=== PATIENT | female | born 1940 | race Caucasian/White ===

== ENCOUNTER → 2018-01-23 14:36 | Outpatient (CLI) | payer MEDICARE, SELFPAY ==
--- NOTE | 2018-01-23 | DI.MG.S_ITS ---
BILATERAL DIGITAL SCREENING MAMMOGRAM 3D/2D WITH CAD: 01/23/2018 CLINICAL: Routine screening. Family history of breast cancer. Comparison is made to exams dated: 12/31/2016 mammogram, 12/31/2015 mammogram, and 12/26/2014 mammogram - [facility]. There are scattered fibroglandular elements in both breasts. Current study was also evaluated with a Computer Aided Detection (CAD) system. No significant masses, calcifications, or other findings are seen in either breast. There has been no significant interval change. IMPRESSION: NEGATIVE There is no mammographic evidence of malignancy. A 1 year screening mammogram is recommended. This exam was interpreted at Station ID: [id number]. NOTE: For mammograms, a report in lay terms will be sent to the patient. Approximately 15% of breast malignancies will not be visualized mammographically. In the management of a palpable breast mass, a negative mammogram must not discourage biopsy of a clinically suspicious lesion. Electronically Signed By: Krzysztof keller/sultana:01/23/2018 15:56:37 copy to: Remberto Ken letter sent: Normal Exam ACR BI-RADS Category 1: Negative 3341F
== END ==
PROVIDERS: PCP Internal Medicine; Visit Provider Internal Medicine
DX: Z12.31 Encounter for screening mammogram for malignant neoplasm of breast (principal); Z80.3 Family history of malignant neoplasm of breast
CPT/HCPCS: 77063; 77067

== ENCOUNTER → 2018-04-18 13:00 | Outpatient (CLI) | payer MEDICARE, SELFPAY | PROVIDERS: PCP Internal Medicine | DX: Z23 Encounter for immunization (principal) | CPT/HCPCS: 90471; 90662 ==

== ENCOUNTER → 2019-02-07 11:23 | Outpatient (CLI) | payer MEDICARE, SELFPAY ==
--- NOTE | 2019-02-07 | DI.MG.S_ITS ---
BILATERAL DIGITAL SCREENING MAMMOGRAM 3D/2D WITH CAD: 02/07/2019 CLINICAL: Routine screening. Family history of breast cancer. Comparison is made to exams dated: 01/23/2018 mammogram, 12/31/2016 mammogram, and 12/31/2015 mammogram - [facility]. There are scattered fibroglandular elements in both breasts. Current study was also evaluated with a Computer Aided Detection (CAD) system. No significant masses, calcifications, or other findings are seen in either breast. There has been no significant interval change. IMPRESSION: NEGATIVE There is no mammographic evidence of malignancy. A 1 year screening mammogram is recommended. This exam was interpreted at Station ID: [id number]. NOTE: For mammograms, a report in lay terms will be sent to the patient. Approximately 15% of breast malignancies will not be visualized mammographically. In the management of a palpable breast mass, a negative mammogram must not discourage biopsy of a clinically suspicious lesion. Electronically Signed By: Christal miranda/sultana:02/07/2019 12:52:35 copy to: Remberto Ken letter sent: Normal Exam ACR BI-RADS Category 1: Negative 3341F
== END ==
PROVIDERS: PCP Internal Medicine; Visit Provider Internal Medicine
DX: Z12.31 Encounter for screening mammogram for malignant neoplasm of breast (principal); Z80.3 Family history of malignant neoplasm of breast
CPT/HCPCS: 77063; 77067

== ENCOUNTER → 2019-04-24 15:04 | Outpatient (CLI) | payer MEDICARE, SELFPAY | PROVIDERS: PCP Internal Medicine | DX: Z23 Encounter for immunization (principal) | CPT/HCPCS: 90471; 90662 ==

== ENCOUNTER → 2019-07-19 14:18 | Outpatient (ROUT) | payer MEDICARE, SELFPAY ==
[2019-07-19 14:42] LABS: Aspartate Aminotransferase 28 IU/L (14-36); BUN Creatinine Ratio 19.2 (6-22); Blood Urea Nitrogen 23 mg/dL (7-17); Calcium 10.4 mg/dL (8.4-10.2); Carbon Dioxide 26 mmol/L (22-32); Chloride 104 mmol/L (98-107); Cholesterol 199 mg/dL (140-199); Estimated Glomerular Filt Rate 43.4 mL/min (>60); Glucose 94 mg/dL (80-110); HDL Cholesterol 76 mg/dL (40-60); HEMOLYSIS < 15 (0-50); LDL Cholesterol Calculated 107 mg/dL (<100); Potassium 4.7 mmol/L (3.4-5.1); Sodium 137 mmol/L (137-145); Triglycerides 78 mg/dL (35-150)
== END ==
PROVIDERS: PCP Internal Medicine; Visit Provider Internal Medicine
DX: I10 Essential (primary) hypertension (principal); E78.2 Mixed hyperlipidemia
CPT/HCPCS: 80048; 80061; 84450

== ENCOUNTER → 2020-03-13 13:22 | Outpatient (CLI) | payer MEDICARE, SELFPAY ==
--- NOTE | 2020-03-13 13:25 | DI.MG.S_ITS ---
BILATERAL DIGITAL SCREENING MAMMOGRAM 3D/2D WITH CAD: 03/13/2020 CLINICAL: Routine screening. Family history of breast cancer. Comparison is made to exams dated: 02/07/2019 mammogram, 01/23/2018 mammogram, and 12/31/2016 mammogram - [facility]. There are scattered fibroglandular elements in both breasts. Current study was also evaluated with a Computer Aided Detection (CAD) system. No significant masses, calcifications, or other findings are seen in either breast. There has been no significant interval change. IMPRESSION: NEGATIVE There is no mammographic evidence of malignancy. A 1 year screening mammogram is recommended. This exam was interpreted at Station ID: [id number]. NOTE: For mammograms, a report in lay terms will be sent to the patient. Approximately 15% of breast malignancies will not be visualized mammographically. In the management of a palpable breast mass, a negative mammogram must not discourage biopsy of a clinically suspicious lesion. Electronically Signed By: Jose lima/sultana:03/13/2020 17:28:32 copy to: Remberto Ken letter sent: Normal Exam ACR BI-RADS Category 1: Negative 3341F
== END ==
PROVIDERS: PCP Internal Medicine; Referring Provider Internal Medicine; Visit Provider Internal Medicine
DX: Z12.31 Encounter for screening mammogram for malignant neoplasm of breast (principal); Z80.3 Family history of malignant neoplasm of breast
CPT/HCPCS: 77063; 77067

== ENCOUNTER → 2020-05-01 | Outpatient (CLI) | payer MEDICARE, SELFPAY | PROVIDERS: PCP Internal Medicine; Referring Provider Internal Medicine; Visit Provider Internal Medicine | DX: Z23 Encounter for immunization (principal) | CPT/HCPCS: 90471; 90662 ==

== ENCOUNTER → 2020-05-28 08:27 | Outpatient (CLI) | payer MEDICARE, SELFPAY | PROVIDERS: PCP Internal Medicine; Visit Provider Physician Assistant | DX: R30.0 Dysuria (principal) | CPT/HCPCS: 87077; 87086; 87186 ==

== ENCOUNTER → 2020-07-12 08:51 | Outpatient (CLI) | payer MEDICARE, SELFPAY | PROVIDERS: PCP Internal Medicine; Visit Provider Nurse Practitioner | DX: R30.0 Dysuria (principal) | CPT/HCPCS: 87077; 87086; 87186 ==

== ENCOUNTER → 2020-07-15 10:46 | Outpatient (CLI) | payer MEDICARE, SELFPAY ==
--- NOTE | 2020-07-15 | DI.US.S_ITS ---
PROCEDURE: US RENAL COMPLETE INDICATIONS: CHRONIC KIDNEY DISEASE TECHNIQUE: Real-time scanning was performed of the kidneys and bladder, with image documentation. COMPARISON: None. FINDINGS: Kidneys: Kidneys are normal in size. Right kidney measures 9.3 cm long; left kidney measures 10.8 cm long. Right renal cortical thickness is 1.3 cm; left renal cortical thickness is 1.1 cm. Renal cortical echotexture is normal. No hydronephrosis or nephrolithiasis. No suspicious solid mass lesions. Bladder: Pre-void bladder volume is 180 mL. Post-void residual is 32 mL. Pre-void images demonstrate no intraluminal masses or stones. On pre-void images, neither ureteral jets are noted with color Doppler interrogation. (Of note, ureteral jets may not be detectable in up to 25% of cases due to insufficient differences in specific gravity between ureteral and bladder urine). Miscellaneous: No free pelvic fluid. IMPRESSION: No hydronephrosis or nephrolithiasis found. Mild renal cortical thinning. Normal bladder function. Dictated by: Marcos Salguero M.D. on 07/15/2020 at 11:41 Approved by: Marcos Salguero M.D. on 07/15/2020 at 11:47
== END ==
PROVIDERS: PCP Nurse Practitioner Family; Referring Provider Nurse Practitioner Family; Visit Provider Nurse Practitioner Family
DX: N18.9 Chronic kidney disease, unspecified (principal)
CPT/HCPCS: 76770

== ENCOUNTER → 2020-07-23 12:52 | Outpatient (CLI) | payer MEDICARE, SELFPAY | PROVIDERS: PCP Nurse Practitioner Family; Referring Provider Nurse Practitioner Family; Visit Provider Nurse Practitioner Family | DX: M85.852 Other specified disorders of bone density and structure, left thigh (principal) | CPT/HCPCS: 77080 ==

== ENCOUNTER → 2020-08-22 13:15 | Outpatient (CLI) | payer MEDICARE, SELFPAY ==
[2020-08-22] MEDS: COVID-19 VACC #1, MRNA(MOD) 100 MCG/0.5 ML VIAL IM (13:23)
== END ==
PROVIDERS: PCP Nurse Practitioner Family; Visit Provider Internal Medicine
DX: Z23 Encounter for immunization (principal)
CPT/HCPCS: 0011A; 91301

== ENCOUNTER → 2020-09-19 14:19 | Outpatient (CLI) | payer MEDICARE, SELFPAY ==
[2020-09-19] MEDS: COVID-19 VACC #2, MRNA(MOD) 100 MCG/0.5 ML VIAL IM (14:25)
== END ==
PROVIDERS: PCP Nurse Practitioner Family; Visit Provider Internal Medicine
DX: Z23 Encounter for immunization (principal)
CPT/HCPCS: 0012A; 91301

== ENCOUNTER 2020-12-20 10:18 | Emergency (ER) | payer MEDICARE, SELFPAY ==
[2020-12-20] VITALS (18 sets, daily range): BP systolic 127–199; BP diastolic 68–110; PULSE 49–88; RESP 0–18; TEMP 36.2; O2SAT 90–100
--- NOTE | 2020-12-20 10:21 | ED.NEUROSD ---
HPI - Neuro Symptoms/Deficit General Chief Complaint: Neuro Symptoms/Deficit Stated Complaint: Stroke Time Seen by Provider: 12/20/20 10:20 Source: patient and EMS Mode of arrival: EMS History of Present Illness HPI Narrative: This is a 80-year-old female who was walking with her when she developed headache and vomiting. EMS states they found her on the ground. Unclear if she fell or was lowered to the ground by her but per report headache developed before she moved to the ground. Patient intermittently answers questions but at times is confused. When asked her location she stated ?brother? but at other times will answer questions appropriately. Patient's is later in the department and states she has a history of hypertension. He states she started complaining of a ?splitting headache? and then started have some difficulty walking and started to fall to the ground. He helped lower her to the ground and she did not strike her head. He nor patient believed that she takes any blood thinners regularly. She does take simvastatin. He did note she at a couple questions that she should know the answer to yesterday but did not appreciate any major changes otherwise. Patient did throw up in the department some pink emesis and patient had had strawberries in her breakfast which is likely source of this. Related Data Home Medications Medication Instructions Recorded Confirmed estradiol [Estrace] 0.5 mg PO QDAY #0 07/24/12 07/12/20 irbesartan [Avapro] 300 mg PO QDAY #0 07/24/12 07/12/20 progesterone micronized 100 mg PO QDAY #0 07/24/12 07/12/20 [Prometrium] simvastatin [Zocor] 20 mg PO QDAY #0 07/24/12 07/12/20 VITAMIN D (Vitamin D3) 2,000 iu PO QDAY #0 08/02/17 07/12/20 Allergies Allergy/AdvReac Type Severity Reaction Status Date / Time atorvastatin AdvReac Muscle Pain Verified 12/20/20 10:49 lisinopril AdvReac cough Verified 12/20/20 10:49 Review of Systems Review of Systems ROS Unobtainable: All systems reviewed & are unremarkable except as noted in HPI and below (Patient is able to give some R) Patient History Medical History No significant medical problems Social History Smoking Status: Never smoker Exam Narrative Exam Narrative: GEN: well nourished, elderly female, alert to self patient does not know her location she can not tell me she takes hypertension medications, patient appears to be in moderate distress. HEENT: Atraumatic, pupils are equal round reactive to light, extraocular movements are intact, nares are clear, no facial droop on initial examination. No dyarthria. TMs are clear with no fluid, there is no conjunctival pallor. Throat is clear without any exudates, erythema, tonsillar enlargement or uvular deviation HEART: Regular rate and rhythm without murmur, clicks, rubs. LUNGS:Lungs clear to auscultation, no wheezes, rales, crackles, chest moves symmetrically ABD:bowel sounds normal, soft, non-tender, no guarding, rebound, rigidity, no masses noted, no hepatosplenomegaly MSCL: Non-tender, no muscle atrophy, moving all 4 extremities but patient does not follow commands for NIH testing. NEURO:CN 2-12 intact, sensation normal SKIN: No rash, erythema or skin changes. Initial Vital Signs Initial Vital Signs: Vital Signs Temperature 97.2 F L 12/20/20 10:18 Pulse Rate 67 12/20/20 10:18 Respiratory Rate 16 12/20/20 10:18 Blood Pressure 199/110 H 12/20/20 10:18 Pulse Oximetry 99 12/20/20 10:18 Procedures Intubation Time out performed: Yes sedative: Etomidate Mg Given: 10 paralytic: Succinylcholine Mg Given: 150 Laryngoscope: fiber optic video scope ET Tube Size: 7.5 ET Tube Uncuffed: Yes Tube Secured Depth (cm): 23 Tube Secured Location: teeth Tube Placement Confirmation: Visualized tube passing through cords, Equal breath sounds bilaterally, No breath sounds over epigastrium, Confirmation by capnometry and Chest Xray Patient Tolerated Procedure: Well Intubation Complications: none Scores GCS [place] coma scale eye opening: Spontaneous Marco A coma scale verbal response: Confused Marco A coma scale motor response: Obey commands Marco A coma scale total score: 14 NIH Stroke Scale Level of Conciousness: Alert, keenly responsive Ask month/age: Answers one question correctly, intubated follow commands Open/close eyes, close hand: Performs both tasks correctly Best gaze horizontal: Normal Visual souza: No visual loss Facial palsy: Normal symetrical movement Left arm drift: No drift for full 10 sec Right arm drift: No drift for full 10 sec Left leg drift: No drift for full 5 sec Right leg drift: No drift for full 5 sec Limb ataxia: Present in two limbs Sensory on face/arms/legs: Normal, no sensory loss Extinction or inattention: No abnormality Course Orders Ordered: ED Orders 12/20/20 10:20 CT Stroke Stat EKG-12 Lead Stat 12/20/20 10:25 Complete Blood Count AUTO DIFF Stat Comprehensive Metabolic Panel Stat Partial Thromboplastin Time Stat Prothrombin Time INR Stat Troponin & CK Cardiac Panel Stat 12/20/20 10:30 COVID19 - ADMIT (HAIR DRYER swab/PCR) Stat 12/20/20 10:50 CT angio head and neck Stat 12/20/20 11:20 XR chest 1V Stat Discontinued Medications Etomidate (Etomidate 2 Mg/Ml 10 Ml Vial) 10 mg IV NOW ONE Stop: 12/20/20 11:21 Last Admin: 12/20/20 11:25 Dose: 10 mg Documented by: PADMA Fentanyl (Fentanyl 100 Mcg/2 Ml Inj) 50 mcg IV Q1HR PRN PRN Reason: Pain, Severe (7-10) Sodium Chloride (Normal Saline 0.9%) 1,000 mls @ 150 mls/hr IV CONT LOYD Last Infusion: 12/20/20 12:14 Dose: 0 mls/hr Documented by: Admin: 12/20/20 10:42 Dose: 150 mls/hr Documented by: PADMA Nicardipine HCl 25 mg/ Sodium (Chloride) 250 mls @ 50 mls/hr IV TITRATE LOYD; Protocol Last Titration: 12/20/20 12:13 Dose: 0 mg/hr, 0 mls/hr Documented by: Titration: 12/20/20 11:18 Dose: 10 mg/hr, 100 mls/hr Documented by: Admin: 12/20/20 11:14 Dose: 5 mg/hr, 50 mls/hr Documented by: PADMA Propofol (Propofol) 1,000 mg in 100 mls @ 5.448 mls/hr IV TITRATE LOYD; Protocol Last Titration: 12/20/20 12:12 Dose: 0 mcg/kg/min, 0 mls/hr Documented by: Admin: 12/20/20 12:11 Dose: 10 mcg/kg/min, 5.448 mls/hr Documented by: MARYJO Labetalol HCl (Labetalol 20 Mg/4 Ml Syringe) 10 mg IV NOW ONE Stop: 12/20/20 10:33 Last Admin: 12/20/20 10:42 Dose: 10 mg Documented by: PADMA Labetalol HCl (Labetalol 20 Mg/4 Ml Syringe) 10 mg IV NOW ONE Stop: 12/20/20 11:01 Last Admin: 12/20/20 11:00 Dose: 10 mg Documented by: PADMA Morphine Sulfate (Morphine 4 Mg/Ml Inj) 4 mg IV NOW ONE Stop: 12/20/20 10:33 Last Admin: 12/20/20 10:43 Dose: 2 mg Documented by: PADMA Ondansetron HCl (Ondansetron 4 Mg/2 Ml Inj) 4 mg IV NOW ONE Stop: 12/20/20 10:21 Last Admin: 12/20/20 10:43 Dose: 4 mg Documented by: PADMA Succinylcholine Chloride (Succinylcholine 200 Mg/10 Ml Vial) 150 mg IV NOW ONE Stop: 12/20/20 11:21 Last Admin: 12/20/20 11:26 Dose: 150 mg Documented by: PADMA Reevaluation(s) Reevaluation #1: Patient has had increasingly decreased mental status and now appears have some right facial droop. Patient was intubated preemptively for airway protection prior to transport. CTA was also obtained and has an 8 mm aneurysm noted at the trifurcation so goal blood pressure has been adjusted to 120 systolic and this was conveyed to air lift as well. Time: 11:32 Consultations Consultation #1: Dr. Mi is neurology, asked for CTA if can be obtained without dealing transfer. Goal pressure less than 160. Time: 10:37 Consultation #2: Dr. Castaneda is accepting for [facility] Emergency department. Please see [facility] for more specifics. Time: 10:57 Vital Signs Vital signs: Vital Signs - 8 hr 12/20/20 10:59 12/20/20 11:00 12/20/20 11:08 Pulse Rate 49 L 67 Blood Pressure 193/92 H 193/92 H 189/88 H Pulse Oximetry 96 96 12/20/20 11:10 12/20/20 11:15 12/20/20 11:16 Pulse Rate 58 L 56 L 52 L Blood Pressure 186/91 H 182/93 H Pulse Oximetry 93 96 96 12/20/20 11:19 12/20/20 11:20 12/20/20 11:26 Pulse Rate 58 L 61 75 Blood Pressure 160/81 H 148/76 H 127/68 Pulse Oximetry 95 93 94 12/20/20 11:30 12/20/20 11:35 Pulse Rate 83 85 Blood Pressure 165/89 H 160/80 H Pulse Oximetry 92 100 MDM - Neuro Symptoms/Deficit Lab Data Attestation: I reviewed the patient's lab results. Result diagrams: 12/20/20 10:25 12/20/20 10:25 Labs: Lab Results 12/20/20 12/20/20 12/20/20 Range/Units 10:25 10:25 10:25 WBC 8.1 (4.5-11.0) X10^3/uL RBC 3.83 L (4.0-5.2) X10^6/uL Hgb 12.0 (12.0-16.0) g/dL Hct 35.6 L (36-46) % MCV 92.9 (80-100) fL MCH 31.4 (26-34) PG MCHC 33.8 (30-36) % RDW 13.3 (11.6-14.8) % Plt Count 293 (150-400) X10^3/uL Neut % (Auto) 46.0 L (50-75) % Lymph % (Auto) 38.4 (25-40) % [place] % (Auto) 12.9 (3-14) % Eos % (Auto) 2.4 (2-4) % Baso % (Auto) 0.3 (0-2) % Neut # (Auto) 3700 (3568-1885) /uL Lymph # (Auto) 3100 (1266-5237) /uL [place] # (Auto) 1000 H (0-900) /uL Eos # (Auto) 200 (0-450) /uL Baso # (Auto) 0 (0-100) /uL PT 11.4 (10.1-12.7) SECONDS INR 1.0 (0.9-1.3) APTT 29 (26.4-36.2) SECONDS Sodium 138 (137-145) mmol/L Potassium 3.8 (3.4-5.1) mmol/L Chloride 106 (98-107) mmol/L Carbon Dioxide 22 (22-32) mmol/L BUN 24 H (7-17) mg/dL Creatinine 1.17 H (0.52-1.04) mg/dL Estimated GFR 44.6 L (>60) mL/min BUN/Creatinine Ratio 20.5 (6-22) Glucose 99 (80-110) mg/dL Calcium 10.7 H (8.4-10.2) mg/dL Total Bilirubin 0.4 (0.2-1.3) mg/dL AST 29 (14-36) IU/L ALT 17 (<35) IU/L Alkaline Phosphatase 37 L (38-126) U/L Total Creatine Kinase 70 (30-135) U/L CK-MB (CK-2) TNP CK-MB (CK-2) Rel Index TNP Troponin I < 0.012 (0.01-0.034) ng/mL Total Protein 7.0 (6.3-8.2) g/dL Albumin 4.2 (3.5-5.0) g/dL Globulin 2.8 (1.7-4.1) g/dL Albumin/Globulin Ratio 1.5 (1.0-2.8) SARS-CoV-2 (PCR) (Negative) 12/20/20 Range/Units 10:30 WBC (4.5-11.0) X10^3/uL RBC (4.0-5.2) X10^6/uL Hgb (12.0-16.0) g/dL Hct (36-46) % MCV (80-100) fL MCH (26-34) PG MCHC (30-36) % RDW (11.6-14.8) % Plt Count (150-400) X10^3/uL Neut % (Auto) (50-75) % Lymph % (Auto) (25-40) % [place] % (Auto) (3-14) % Eos % (Auto) (2-4) % Baso % (Auto) (0-2) % Neut # (Auto) (0831-3256) /uL Lymph # (Auto) (0744-6156) /uL [place] # (Auto) (0-900) /uL Eos # (Auto) (0-450) /uL Baso # (Auto) (0-100) /uL PT (10.1-12.7) SECONDS INR (0.9-1.3) APTT (26.4-36.2) SECONDS Sodium (137-145) mmol/L Potassium (3.4-5.1) mmol/L Chloride (98-107) mmol/L Carbon Dioxide (22-32) mmol/L BUN (7-17) mg/dL Creatinine (0.52-1.04) mg/dL Estimated GFR (>60) mL/min BUN/Creatinine Ratio (6-22) Glucose (80-110) mg/dL Calcium (8.4-10.2) mg/dL Total Bilirubin (0.2-1.3) mg/dL AST (14-36) IU/L ALT (<35) IU/L Alkaline Phosphatase (38-126) U/L Total Creatine Kinase (30-135) U/L CK-MB (CK-2) CK-MB (CK-2) Rel Index Troponin I (0.01-0.034) ng/mL Total Protein (6.3-8.2) g/dL Albumin (3.5-5.0) g/dL Globulin (1.7-4.1) g/dL Albumin/Globulin Ratio (1.0-2.8) SARS-CoV-2 (PCR) Negative (Negative) Imaging Data CT scan - head: My Impression: SAH extensive. Radiologist's Impression: [address] Scan ReportSigned Patient: Clover Zamorano RMR#: [id number]: [id number]:[id number]/Sex: 80 / FDate of Service: 12/20/20Loc: EDAccession Number: [id number] Procedure: CT Stroke Ordering Provider: Jazz Martin D.O. PROCEDURE: CT STROKE INDICATIONS: severe headache, vomiting while walking TECHNIQUE: Noncontrast 4.5 mm thick angled axial sections acquired from the foramen magnum to the vertex, with coronal reformats. For radiation dose reduction, the following was used: automated exposure control, adjustment of mA and/or kV according to patient size. COMPARISON: None. FINDINGS: Image quality: Excellent. CSF spaces: Basal cisterns are patent. No extra-axial fluid collections. The ventricles are symmetric in size and shape. Brain: Moderate acute subarachnoid hemorrhage bilaterally predominantly involving the left cerebral hemisphere and the right temporal lobe/fossa. There is cerebral volume loss for age, with resultant ventricular and sulcal prominence. There are periventricular and deep white matter chronic small vessel ischemic changes. There is intracranial internal carotid artery atherosclerosis. There is suggestion of edema involving the right amy and right cerebellar peduncle without definite mass. No midline shift of structures. Skull and face: Calvarium and visualized facial bones appear intact, without suspicious lesions. Sinuses: Visualized sinuses and mastoids are clear. IMPRESSION: Moderate acute bilateral subarachnoid hemorrhage predominantly involving the left cerebral hemisphere and right temporal lobe/temporal fossa. No midline shift of structures. Findings may be related to possible rupture of an intracranial aneurysm. Suggestion of edema involving the right amy and right cerebellar peduncle. This may be related to infarction versus mass lesion. Age related senescent changes and sequela of chronic small vessel ischemic disease. Findings were discussed with Dr. Martin of the emergency department at 1045 hrs [facility]. This study fulfills neurological imaging criteria for inclusion or exclusion of acute stroke therapies based on available published neurological guidelines. Dictated by: Jose Vazquez M.D. on 12/20/2020 at 10:35 Approved by: Jose Vazquez M.D. on 12/20/2020 at 10:46 CTA - brain/neck: Radiologist's Impression: [address] [id number] Scan ReportSigned Patient: Clover Zamorano R#: [id number]: [id number]:[id number]/Sex: 80 / FDate of Service: 12/20/20Loc: EDAccession Number: [id number] Procedure: CT angio head and neck Ordering Provider: Jazz Martin D.O. PROCEDURE: CT ANGIO HEAD AND NECK INDICATIONS: subarachnoid bleed TECHNIQUE: Noncontrast images were performed earlier in the day and not repeated. After the administration of intravenous contrast, 1 mm thick sections acquired from the aortic arch through the [place] of [place]. Post-contrast 4.5 mm thick sections then re-acquired from the foramen magnum to the vertex. 3-dimensional dwmrikb-ijcniuuiq-ifmhrgbdri (MIP) and/or volume rendering reformats were acquired of the central intracranial vasculature and neck separately. COMPARISON: [facility], CT, CT STROKE, 12/20/2020, 10:26. FINDINGS: Image quality: Excellent. BRAIN: CSF spaces: Ventricles are normal in size and shape. Basal cisterns are patent. No extra-axial fluid collections. Brain: There is again seen prominent left-sided subarachnoid hemorrhage, which is centered within the left prepontine cistern. The hemorrhage is overall better seen on the prior noncontrast CT examination. No midline shift. No intracranial masses. Benedict-white matter interface appears intact. Skull and face: Calvarium and facial bones appear intact, without suspicious lesions. Orbits appear normal. Sinuses: Sinuses and mastoids are clear. HEAD CT ANGIOGRAPHY: Anterior circulation: There is an irregular aneurysm seen involving the left MCA trifurcation that measures 8 mm, as on series 8, image 73. Intracranial internal carotid arteries are normal in size and flow. The flow within the paired anterior cerebral arteries is normal and symmetric. The flow within the middle cerebral arteries is normal and symmetric. The anterior communicating artery is seen. Posterior circulation: Visualized portions of the vertebral arteries demonstrate normal caliber, and join to form a normal appearing basilar artery. Flow within the posterior cerebral arteries is normal and symmetric. No aneurysms are seen. NECK CT ANGIOGRAPHY: Carotid system: The great vessels demonstrate a conventional anatomy as they arise from the aortic arch. The origins of the common carotid arteries appear patent. The common carotid arteries demonstrate normal caliber. Both common carotid arteries are tortuous. The bifurcation regions are both widely patent. The internal carotid arteries demonstrate normal calibers and courses. Posterior circulation: The origins of the vertebral arteries both appear widely patent. The more superior extracranial portions of both vertebral arteries also demonstrate normal courses and calibers. They join to form a normal appearing basilar artery. Soft tissues: Visualized neck soft tissues demonstrate no suspicious abnormalities. Bones: No suspicious bony lesions. Visualized cervical spine appears normally aligned. Focal C5-C6 degenerative change is seen. Milder degenerative changes are seen elsewhere. 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 No rachael qvkchu-ho-Gqzhdn aneurysms are seen. Within the arteries of the neck, no hemodynamically significant stenosis can be seen. The common carotid arteries are tortuous. Note: Dr. Martin was not available to discuss this case at the time of this dictation. Findings relayed to Dr. Martin via ER staff Gisela Dr. Martin at 10:27 a.m. [place] time on December 20, 2020. Any quantitative measurements of stenosis were performed using NASCET criteria. Dictated by: Oliver Canseco M.D. on 12/20/2020 at 10:22 Approved by: Oliver Canseco M.D. on 12/20/2020 at 10:29 ECG Data Attestation: I personally reviewed and interpreted this ECG as follows: Prior ECG tracings: not available for review Interpretation: Sinus rhythm with marked sinus arrhythmia, patient has Q-wave in 3 and AVF. No elevation appreciated. MDM Narrative Medical decision making narrative: 80-year-old female comes to the emergency department with nontraumatic subarachnoid. Patient being transferred to [facility] Emergency Department. Dr. Castaneda the emergency department as he is emptying physician. Goal BP is less than 160 unless a known aneurysm and then would be less than 120. Patient had labetalol which was helpful the patient's blood pressure is continuing to creep back up a plan to start nicardipine. Patient at this time is maintaining her airway and mentation but with her large bleed is this is subjective changed she will be monitored closely. During her stay she had decreased mentation and was intubated for airway protection. Patient's is aware that she has a potent potentially fatal bleed and patient and her both had discussed when she initially arrived that she is a full code at this time. Patient CT a found have an 8 mm aneurysm and nursing as well as airlift were updated on these and her new goal of 120 systolic pressure. Stroke Core Measures Contraindications for TPA in CVA: Presentation c/w SA Bleed Critical Care Time Critical Care Time Critical Care Time: Yes Total Critical Care Time: 75 Attestation: The high probability of a clinically significant, sudden or life threatening deterioration of the [neurologic] system(s) required my full and direct attention, intervention and personal management. The aggregate critical care time was [75] minutes. This time is in addition to time spent performing reported procedures but includes the following: [x] Data Review and interpretation [x] Patient assessment and monitoring of vital signs [x] Documentation [x] Medication orders and management Discharge Plan Departure Patient Disposition: [facility] Clinical Impression: Subarachnoid hemorrhage Prescriptions: No Action estradiol [Estrace] 1 MG tablet 0.5 mg PO QDAY Qty: 0 RF: 0 progesterone micronized [Prometrium] 100 MG capsule 100 mg PO QDAY Qty: 0 RF: 0 irbesartan [Avapro] 300 MG tablet 300 mg PO QDAY Qty: 0 RF: 0 simvastatin [Zocor] 20 MG tablet 20 mg PO QDAY Qty: 0 RF: 0 VITAMIN D (Vitamin D3) 2,000 iu PO QDAY Qty: 0 RF: 0 Referrals: Kendra Riavs ARNP [Primary Care Provider] -
[2020-12-20 10:29] LABS: Add Manual Diff / Slide Review NO; Basophils Absolute Auto 0 /uL (0-100); Basophils Percent Auto 0.3 % (0-2); Eosinophils Absolute Auto 200 /uL (0-450); Eosinophils Percent Auto 2.4 % (2-4); Hematocrit 35.6 % (36-46); Lymphocytes Absolute Auto 3100 /uL (1100-4500); Lymphocytes Percent Auto 38.4 % (25-40); Mean Corpuscular HGB Conc 33.8 % (30-36); Mean Corpuscular Hemoglobin 31.4 PG (26-34); Mean Corpuscular Volume 92.9 fL (80-100); Monocytes Absolute Auto 1000 /uL (0-900); Monocytes Percent Auto 12.9 % (3-14); Neutrophils Absolute Auto 3700 /uL (1500-7000); Platelet Count 293 X10^3/uL (150-400); Red Blood Cell Count 3.83 X10^6/uL (4.0-5.2); Red Cell Distribution Width 13.3 % (11.6-14.8); White Blood Cell Count 8.1 X10^3/uL (4.5-11.0)
[2020-12-20 10:35] LABS: Prothrombin Time 11.4 SECONDS (10.1-12.7)
[2020-12-20 10:37] LABS: PTT Partial Thromboplastin Tim 29 SECONDS (26.4-36.2)
[2020-12-20 10:40] LABS: Alanine Aminotransferase 17 IU/L (<35); Albumin 4.2 g/dL (3.5-5.0); Albumin Globulin Ratio 1.5 (1.0-2.8); Alkaline Phosphatase 37 U/L (38-126); Aspartate Aminotransferase 29 IU/L (14-36); BUN Creatinine Ratio 20.5 (6-22); Bilirubin Total 0.4 mg/dL (0.2-1.3); Blood Urea Nitrogen 24 mg/dL (7-17); Calcium 10.7 mg/dL (8.4-10.2); Carbon Dioxide 22 mmol/L (22-32); Chloride 106 mmol/L (98-107); Creatine Kinase 70 U/L (30-135); Estimated Glomerular Filt Rate 44.6 mL/min (>60); Globulin 2.8 g/dL (1.7-4.1); Glucose 99 mg/dL (80-110); HEMOLYSIS < 15 (0-50); Potassium 3.8 mmol/L (3.4-5.1); Sodium 138 mmol/L (137-145)
[2020-12-20] MEDS: SODIUM CHLORIDE 0.9% 1,000 ML 150 ML IV (10:42)
[2020-12-20] MEDS: LABETALOL 20 MG/4 ML SYRINGE 10 MG IV ×2 (10:42→11:00)
--- NOTE | 2020-12-20 10:42 | PC.NURSE ---
recieved handoff from lia S patient on 3lnc sats 97% bilateral Iv in place. On cardiac specialist. Verbal responses appropriate. denies needs at this time.
[2020-12-20] MEDS: MORPHINE 4 MG/ML INJ IV (10:43)
[2020-12-20] MEDS: ONDANSETRON 4 MG/2 ML INJ IV (10:43)
--- NOTE | 2020-12-20 10:50 | DI.CT.S_ITS ---
PROCEDURE: CT ANGIO HEAD AND NECK INDICATIONS: subarachnoid bleed TECHNIQUE: Noncontrast images were performed earlier in the day and not repeated. After the administration of intravenous contrast, 1 mm thick sections acquired from the aortic arch through the [place] of [place]. Post-contrast 4.5 mm thick sections then re-acquired from the foramen magnum to the vertex. 3-dimensional dzoosbn-xfjqzwwgu-rjxkopkawu (MIP) and/or volume rendering reformats were acquired of the central intracranial vasculature and neck separately. COMPARISON: [facility], CT, CT STROKE, 12/20/2020, 10:26. FINDINGS: Image quality: Excellent. BRAIN: CSF spaces: Ventricles are normal in size and shape. Basal cisterns are patent. No extra-axial fluid collections. Brain: There is again seen prominent left-sided subarachnoid hemorrhage, which is centered within the left prepontine cistern. The hemorrhage is overall better seen on the prior noncontrast CT examination. No midline shift. No intracranial masses. [place]-white matter interface appears intact. Skull and face: Calvarium and facial bones appear intact, without suspicious lesions. Orbits appear normal. Sinuses: Sinuses and mastoids are clear. HEAD CT ANGIOGRAPHY: Anterior circulation: There is an irregular aneurysm seen involving the left MCA trifurcation that measures 8 mm, as on series 8, image 73. Intracranial internal carotid arteries are normal in size and flow. The flow within the paired anterior cerebral arteries is normal and symmetric. The flow within the middle cerebral arteries is normal and symmetric. The anterior communicating artery is seen. Posterior circulation: Visualized portions of the vertebral arteries demonstrate normal caliber, and join to form a normal appearing basilar artery. Flow within the posterior cerebral arteries is normal and symmetric. No aneurysms are seen. NECK CT ANGIOGRAPHY: Carotid system: The great vessels demonstrate a conventional anatomy as they arise from the aortic arch. The origins of the common carotid arteries appear patent. The common carotid arteries demonstrate normal caliber. Both common carotid arteries are tortuous. The bifurcation regions are both widely patent. The internal carotid arteries demonstrate normal calibers and courses. Posterior circulation: The origins of the vertebral arteries both appear widely patent. The more superior extracranial portions of both vertebral arteries also demonstrate normal courses and calibers. They join to form a normal appearing basilar artery. Soft tissues: Visualized neck soft tissues demonstrate no suspicious abnormalities. Bones: No suspicious bony lesions. Visualized cervical spine appears normally aligned. Focal C5-C6 degenerative change is seen. Milder degenerative changes are seen elsewhere. 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 No rachael tfsrph-rg-Onybwp aneurysms are seen. Within the arteries of the neck, no hemodynamically significant stenosis can be seen. The common carotid arteries are tortuous. Note: Dr. Martin was not available to discuss this case at the time of this dictation. Findings relayed to Dr. Martin via ER staff Gisela Dr. Martin at 10:27 a.m. [place] time on December 20, 2020. Any quantitative measurements of stenosis were performed using NASCET criteria. Dictated by: Oliver Canseco M.D. on 12/20/2020 at 10:22 Approved by: Oliver Canseco M.D. on 12/20/2020 at 10:29
[2020-12-20 10:52] LABS: Troponin I < 0.012 ng/mL (0.01-0.034)
[2020-12-20] MEDS: NICARDIPINE 25 MG in SODIUM CHLORIDE 0.9% 240 ML 50 ML IV (11:14)
--- NOTE | 2020-12-20 11:20 | DI.RAD.S_ITS ---
PROCEDURE: XR CHEST 1V INDICATIONS: post intubation TECHNIQUE: One view of the chest was acquired. COMPARISON: [facility], , CHEST 2 VIEW, 09/02/2010, 11:34. [facility], CT, CT ANGIO HEAD AND NECK, 12/20/2020, 10:57. [facility], CT, CT STROKE, 12/20/2020, 10:26. [facility], , CHEST 2 VIEW, 03/19/2015, 12:31. FINDINGS: Surgical changes and devices: An endotracheal tube is seen, with the tip 3.5 cm above the zach. Lungs and pleura: On this supine examination, no large pneumothorax or large pleural effusions are seen. No focal areas of lung consolidation are seen. Mediastinum: The cardiac contours are within normal limits. The aorta demonstrates calcification and tortuosity. Bones and chest wall: No suspicious bony lesions. Overlying soft tissues appear unremarkable. IMPRESSION: The tip of the endotracheal tube is seen 3.5 cm above the zach. Dictated by: Oliver Canseco M.D. on 12/20/2020 at 10:39 Approved by: Oliver Canseco M.D. on 12/20/2020 at 10:40
[2020-12-20] MEDS: ETOMIDATE 2 MG/ML 10 ML VIAL 10 MG IV (11:25)
[2020-12-20] MEDS: SUCCINYLCHOLINE 200 MG/10 ML VIAL 150 MG IV (11:26)
[2020-12-20 11:34] LABS: COVID19 - ADMIT (NP swab/PCR) Negative (Negative)
[2020-12-20] MEDS: propofoL 1,000 MG/100 ML VIAL 5.448 MG IV (12:11)
--- NOTE | 2020-12-20 12:13 | PC.NURSE ---
Ana María Reyes took propofol to hang in route.
--- NOTE | 2020-12-20 12:15 | PC.NURSE ---
Patient LOC declined and Dr Martin intubated to protect airway just prior to airlift arrival. 7.5 tube, 23 at the lip. color change and placed on facility vent. Report given to Ana María MITCHE[facility].
--- NOTE | 2020-12-20 12:17 | PC.NURSE ---
NIH started at bedside with DR crowder however emergent CT stopped assessment. Pt returned to CT with declining LOC. Becoming more difficult to arouse. Pupils remain 2mm equal and reactive. Provider initiated Intubation. In CT patient became bradycardic into the 30s for less than one minute. BP increased into the 190s systolic. 10mg labetalol given in ct left hand for hypertension.
== END 2020-12-20 12:25 | disposition short-term general hospital (02) ==
PROVIDERS: Emergency Provider Emergency Medicine; PCP Nurse Practitioner Family
DX: S06.6X0A Traumatic subarachnoid hemorrhage without loss of consciousness, initial encounter (principal); R11.10 Vomiting, unspecified; Z20.822 Contact with and (suspected) exposure to COVID-19; W19.XXXA Unspecified fall, initial encounter; I49.9 Cardiac arrhythmia, unspecified
CPT/HCPCS: 31500; 36415; 51701; 70450; 70496; 70498; 71045; 80053; 82550; 84484; 85025; 85610; 85730; 87635; 93005; 93010; 96365; 96375; 96376; 99285; 99291; 99292; C9803; J0330; J2270; J2405; J2704